=== PATIENT | male | born 2000 | race African-American/Black ===

== ENCOUNTER 2022-07-06 07:45 | Observation (INO) | payer OTHER ==
[2022-07-06] VITALS (56 sets, daily range): BP systolic 102–136; BP diastolic 54–97
[~2022-07-06] VITALS: Ht 175.3 cm; Wt 62.9 kg
--- NOTE | 2022-07-06 07:49 | NUR ---
PATIENT TO RROM 6 WITH RANDI.
[2022-07-06 08:45] LABS: HEMATOCRIT 43.2 % (39.0-50.0); HEMOGLOBIN 14.1 g/dl (14.0-18.0); IMMATURE GRANULOCYTES 0.1 % (0.0-5.0); MEAN CELL VOLUME 81.7 fL CALC (80.0-100.0); MEAN CORPUSCULAR HGB 26.7 pG CALC (26.0-32.0); MEAN CORPUSCULAR HGB CONC 32.6 g/dL CAL (32.0-36.0); NEUT# 5.82 thou/uL (1.82-7.42); RED BLOOD COUNT 5.29 mill/uL (4.70-6.10); RED CELL DISTRI WIDTH 14.1 % (11.5-15.5)
[2022-07-06 08:48] LABS: ALBUMIN 4.8 g/dL (3.2-5.0); ALKALINE PHOSPHATASE 52 u/l (38-126); ANION GAP 16 (6-22 (CALC)); BILIRUBIN, TOTAL 0.4 mg/dL (0.0-1.4); BUN 13 mg/dL (9-20); BUN/CREATININE RATIO 14 (12-20 (CALC)); CARBON DIOXIDE 28 mmol/l (22-30); CHLORIDE 101 mmol/l (95-108); CREATININE 0.9 mg/dL (0.7-1.3); GFR FOR AFR.AMER. > 60 ML/MIN (>=60 (CALC)); GFR OTHER RACES > 60 ML/MIN (>=60 (CALC)); POTASSIUM 3.8 mmol/l (3.5-5.1); SGOT/AST 48 u/l (17-59); SODIUM 141 mmol/l (137-146); TOTAL PROTEIN 8.2 g/dL (6.3-8.2)
--- NOTE | 2022-07-06 09:50 | NUR ---
PT REFUSING LIDOCAINE AND SUTURE REPAIR. MD NOTIFIED.
--- NOTE | 2022-07-06 10:37 | NUR ---
attempt to call report, RN to call back
--- NOTE | 2022-07-06 12:00 | NUR ---
PT TO [facility], DAUGHTER AT THE BS
--- NOTE | 2022-07-06 12:04 | NUR ---
ATTEMPT TO CALL REPORT, RN TO CALL BACK
--- NOTE | 2022-07-06 13:49 | NUR ---
PER ICU, PT WILL REMIAM IN ED UNTIL ICU IS ABLE TO OPEN BEDS
--- NOTE | 2022-07-06 14:40 | NUR ---
Reassessment of patient completed. No distress noted.
--- NOTE | 2022-07-06 15:30 | NUR ---
Reassessment of patient completed. No distress noted.
--- NOTE | 2022-07-06 16:45 | NUR ---
LAC REPAIR IN PROGRESS
--- NOTE | 2022-07-06 17:45 | NUR ---
male pt received from ER to ICU bed 3 via stretcher accompanied by nurse x2 and guards x2; cuffed bilat ankle; pt able to transfer self to bed; admission assessment completed at this time; pt alert and oriented; denies pain; no n/v noted; resp even and unlabored; lungs clear; skin color wnl; ra sat 100%; o2 placed at 2L nc per MD orders; pt denies resp distress/denies pain with inspiration; hr reg; strong pulses; no edema noted; sr on monitor; abd soft with bs present; no bm noted per specifications writer; pt admits to voiding without complication; no urine to inspect at this time; #20 to lac, #20 to rac; both sites flushed and patent; no redness or edema noted at site; occipital lac noted with 4 kay intact; left neck lac noted with sutures intact; scratch noted to left ant shoulder; shallow puncture noted to upper back; pt appears withdrawn, very limited with conversation; plan of care/ meds explained; dinner provided; pt cuffed to bed frame via right ankle; guards x2 remain at bedside; call light within reach #
--- NOTE | 2022-07-06 20:00 | NUR ---
PT ALERT AND ORIENTED. PT FOLLOWS COMMANDS. ASSESSED PTS WOUNDS ON LEFT NECK AND REAR OF HIS NECK. INCISITIONS LOOK WELL APPOXIMATED, NO SIGNS OF REDNESS, AND NO SWELLING. PT DENIES PAIN AT THIS TIME. VITAL SIGNS ARE WITHIN NORMAL LIMITS. PT DOES HAVE A NASAL CANNULA AT 2L. EXPLAINED THAT HE HAS TO KEEP THE NC ON OVERNIGHT. PT AGREED TO PLAN OF CARE. PTS LUNG SOUNDS CLEAR. PT DENIES ANY DIFFICULTY BREATHING. CALL LIGHT WITHIN REACH. PT BEING CLOSELY MONITORED.
--- NOTE | 2022-07-06 22:00 | NUR ---
SHIFT REASSESSMENT - NO CHANGE IN PTS STATUS SINCE INITICAL ASSESSMENT. PTS CALL LIGHT WITHIN REACH.
[2022-07-07] VITALS (36 sets, daily range): BP systolic 96–130; BP diastolic 59–114
--- NOTE | 2022-07-07 | NUR ---
SHIFT REASSESSMENT - PT LOOKS TO BE SLEEPING. FOUND HIS NC OUT OF HIS NOSE. ASSISTED HIM WITH PLACING THE NC BACK IN HIS NOSE. DISCUSSED REASON FOR HAVING TO KEEP IT ON OVERNIGHT. VTIAL SIGNS ARE WITHIN NORMAL LIMITS. PT DENIES PAIN. CALL LIGHT WITHIN REACH.
--- NOTE | 2022-07-07 02:00 | NUR ---
SHIFT REASSESSMENT - NO CHANGE IN PTS STATUS AT THIS TIME. VITAL SIGNS ARE WITHIN NORMAL LIMITS. CALL LIGHT WITHIN REACH.
--- NOTE | 2022-07-07 04:00 | NUR ---
SHIFT REASSESSMENT - OFFERED PT TO GET OUT OF BED AND URINATE. PT DENIES THE NEED TO URINATE AT THIS TIME. INCISIONS LOOK CLEAN AND INSTACT. PT DENIES PAIN AT THIS TIME. VITAL SIGNS WITHIN NORMAL LIMITS.
--- NOTE | 2022-07-07 08:41 | NUR ---
pt has been up to BR with steady gait, denies pain, laceration to L neck, sutures intact, no swelling or redness, lac to back of head, kay intact, no swelling or redness
--- NOTE | 2022-07-07 09:47 | NUR ---
PATIENT TRANSPORTED TO RADIOLOGY FOR CHEST XRAY BY WHEELCHAIR, CORRECTIONS OFFICERS ACCOMPANIED PATIENT TO THE EXAM
--- NOTE | 2022-07-07 10:24 | NUR ---
pt to radiology via WC, accompanied by guards, roberto procedure and transfers well with steady gait
--- NOTE | 2022-07-07 11:58 | NUR ---
pt is discharged and awaiting transport, sitting up eating lunch, IV and monitor removed, guards at bedside
--- NOTE | 2022-07-07 14:27 | NUR ---
Patient remains in treatment room with correctional officers awaiting transportation back to [facility], patient awake and alert, no c/o pain or discomfort, no s/s of distress noted, respirations even and unlabored on room air, afternoon meal given to patient and 2 escorts.
--- NOTE | 2022-07-07 15:33 | NUR ---
pt remains in bed waiting for transportation, guards at bedside
--- NOTE | 2022-07-07 16:10 | NUR ---
pt d/c'd in company of corrections officers, lacerations well aproximated
== END 2022-07-07 16:05 | DRG 605 ==
LOC: ED 07:45 → ED-I 09:33 → ED 09:47 → ICU 09:48
PROVIDERS: Family Medicine; ADMIT Surgery; ATTEND Surgery
PROC: 0HQ4XZZ Repair Neck Skin, External Approach (ICD-10-PCS; principal; 2022-07-06)
PROC: 0HQ0XZZ Repair Scalp Skin, External Approach (ICD-10-PCS; 2022-07-06)
DX: S21.212A Laceration without foreign body of left back wall of thorax without penetration into thoracic cavity, initial encounter (principal); S27.0XXA Traumatic pneumothorax, initial encounter; S11.91XA Laceration without foreign body of unspecified part of neck, initial encounter; S01.01XA Laceration without foreign body of scalp, initial encounter; X99.9XXA Assault by unspecified sharp object, initial encounter; Y93.9 Activity, unspecified; Y92.149 Unspecified place in prison as the place of occurrence of the external cause; Z20.822 Contact with and (suspected) exposure to COVID-19
CPT/HCPCS: Q9967